=== PATIENT | female | born 1995 | race Caucasian/White ===

== ENCOUNTER 2021-06-10 13:30 | Emergency (ER) | payer BC ==
[~2021-06-10] VITALS: Ht 160 cm; Wt 102.1 kg
[2021-06-10 13:38] VITALS: BP 130/79
--- NOTE | 2021-06-10 14:09 | NUR ---
PT SEEN AND EXAMINED BY .
--- NOTE | 2021-06-10 14:19 | NUR ---
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
--- NOTE | 2021-06-10 15:12 | NUR ---
Patient discharged to home in stable condition. Written and verbal after care instructions given. Patient verbalizes understanding of instruction.
== END 2021-06-10 15:14 | disposition home or self-care (01) ==
LOC: ER 13:34
DX: M79.662 Pain in left lower leg (principal); R22.42 Localized swelling, mass and lump, left lower limb; Z88.6 Allergy status to analgesic agent; Z88.2 Allergy status to sulfonamides; Z88.1 Allergy status to other antibiotic agents
CPT/HCPCS: 93971-TC